=== PATIENT | female | born 1980 | race Caucasian/White ===

== ENCOUNTER 2018-07-28 23:30 | Emergency (ER) | payer OTHER ==
[2018-07-28 23:37] VITALS: BP 137/83; TEMP 97.9; BMI 33.6
[2018-07-29] MEDS ORDERED: TYLENOL PO STA (00:07)
--- NOTE | 2018-07-29 00:07 | ED.PDOC ---
General ED Provider: Dr. RASHEL BRYANT-ER Chief Complaint: Wrist Pain/Injury Stated Complaint: i was lifting something at work and my wrist popped Time Seen by Physician: 23:35 Mode of Arrival: Walk-In Information Source: Patient Exam Limitations: No limitations Primary Care Provider: KHADAR ROLAND Nursing and Triage Documentation Reviewed and Agree: Yes Does patient meet sepsis criteria?: No System Inflammatory Response Syndrome: Not Applicable Sepsis Protocol: For patient's 13 years and over: Temp is 96.8 and below OR 101 and greater Pulse >90 BPM Resp >20/minute Acutely Altered Mental Status Are patient's symptoms suggestive of a new infection, such as: -Pneumonia -Skin, Soft Tissue -Endocarditis -UTI -Bone, Joint Infection -Implantable Device -Acute Abdominal Infection -Wound Infection -Meningitis -Blood Stream Catheter Infection -Unknown Musculoskeletal Complaint Exam - Hand/Wrist Complaint/Exam Location of Pain: Reports: Left, Wrist Mechanism of Injury: Reports: Trauma Onset/Duration: tonight Symptoms Are: Still present Onset of Pain: Reports: Immediate, Post accident Initial Severity: Mild Current Severity: Mild Location: Reports: Discrete Character: Reports: Dull, Aching Aggravating: Reports: Movement Associated Signs and Symptoms: Reports: Tingling Tenderness: Present: Radius, Ulna Compartment Syndrome Risk Factors: Present: Pain Differential Diagnoses: Contusion, Sprain, Strain Review of Systems - Review Of Systems Constitutional: Reports: No symptoms Eyes: Reports: No symptoms Ears, Nose, Mouth, Throat: Reports: No symptoms Respiratory: Reports: No symptoms Cardiac: Reports: No symptoms GI: Reports: No symptoms : Reports: No symptoms Musculoskeletal: Reports: Muscle pain Skin: Reports: No symptoms Neurological: Reports: No symptoms Endocrine: Reports: No symptoms Hematologic/Lymphatic: Reports: No symptoms All Other Systems: Reviewed and Negative Past Medical History - Past Medical History Previously Healthy: Yes Endocrine: Reports: Unknown Cardiovascular: Reports: Unknown Respiratory: Reports: Unknown Hematological: Reports: Unknown Gastrointestinal: Reports: Unknown Genitourinary: Reports: Unknown Neuro/Psych: Reports: Unknown Musculoskeletal: Reports: Unknown Cancer: Reports: Unknown Last Menstrual Period: PT HAS HAD A HYSTERECTOMY - Surgical History General Surgical History: Reports: Unknown - Family History Family History: Reports: Unknown - Social History Smoking Status: Current every day smoker, Light tobacco smoker Hx Substance Use: No Alcohol Screening: None - Immunizations Tetanus Shot up to Date: Yes Physical Exam - Physical Exam Appearance: Well-appearing, No pain distress, Well-nourished Eyes: CYNTHIA, EOMI, Conjunctiva clear ENT: Ears normal, Nose normal, Oropharynx normal Neck: Supple Respiratory: Airway patent, Breath sounds clear, Breath sounds equal, Respirations nonlabored Cardiovascular: RRR, Pulses normal, No rub, No murmur GI/: Soft, Nontender, No masses, Bowel sounds normal, No Organomegaly Musculoskeletal: Limited ROM Skin: Warm, Dry, Normal color Neurological: Sensation intact, Motor intact, Reflexes intact, Cranial nerves intact, Alert, Oriented Psychiatric: Affect appropriate Interpretation - Radiology Interpretation Radiology Interpretation By: ED Physician Radiology Results: Negative Procedures - Splinting Location: left wrist Pre-Made Type: Velcro Splint: Wrist Pre-Proc Neuro Vasc Exam: Normal Post-Proc Neuro Vasc Exam: Normal Critical Care Note - Critical Care Note Total Time (mins): 0 Course - Course Orders, Labs, Meds: Orders Category Date Time Status Splint [ED SPLINT APPLICATION] .ONCE EMERGENCY 07/29/18 00:06 Active Acetaminophen [Tylenol] MEDS 07/29/18 00:07 Discontinued 650 mg PO ONCE STA HAND, LEFT 3 VIEWS Stat RADS 07/28/18 23:47 Taken WRIST, LEFT 3 VIEWS Stat RADS 07/28/18 23:47 Taken Medications Discontinued Medications Generic Name Dose Route Start Last Admin Trade Name Chapitoq PRN Reason Stop Dose Admin Acetaminophen 650 mg 07/29/18 00:07 Tylenol PO 07/29/18 00:08 ONCE STA Vital Signs: Temp Pulse Resp BP Pulse Ox 07/28/18 23:31 97.9 F 73 16 137/83 99 Departure - Departure Time of Disposition: 00:09 Disposition: HOME SELF-CARE Discharge Problem: Injury of wrist Instructions: Wrist Injury (ED) Condition: Good Pt referred to PMD for follow-up: Yes IPMP verified?: No Additional Instructions: stay in splint--ice---tylenol for pain---recheck in a few days if not better with pcp Allergies/Adverse Reactions: Allergies hydromorphone [From Dilaudid] Adverse Reaction (Verified 07/28/18 23:39) Swelling/RASH Sulfa (Sulfonamide Antibiotics) Adverse Reaction (Verified 07/28/18 23:39) Vomiting GAUZE Adverse Reaction (Uncoded 07/28/18 23:39) Hives/RASH Home Medications: Ambulatory Orders Albuterol Sulfate [Albuterol Sulfate Hfa] 8.5 gm IH Q4-6H PRN 07/28/18 Bupropion HCl [Wellbutrin Sr] 200 mg PO BID 07/28/18 Cholecalciferol (Vitamin D3) [Vitamin D3] 1,000 unit PO WEEKLY 07/28/18 Clonazepam [Klonopin] 1 mg PO QID PRN 07/28/18 Cyanocobalamin (Vitamin B-12) [Vitamin B-12] 1,000 mcg IM MONTHLY 07/28/18 Cyclobenzaprine HCl [Flexeril] 10 mg PO TID 07/28/18 Levothyroxine Sodium 150 mcg PO DAILY 07/28/18 Ropinirole HCl [Requip] 0.5 mg PO BEDTIME 07/28/18 Disposition Discussed With: Patient, Family
--- NOTE | 2018-07-29 00:47 | DI ---
EXAM: Left hand three views HISTORY: Injury COMPARISON: None. FINDINGS: . A portion of the distal aspects of the second through fifth digits is excluded from vie w. There is no acute fracture or dislocation. The surrounding soft tissues are unremarkable IMPRESSION: No acute findings
--- NOTE | 2018-07-29 00:48 | DI ---
EXAM: Left hand three views HISTORY: Injury COMPARISON: None. FINDINGS: There are no acute fracture or dislocation. The surrounding soft tissues are unremarkable . IMPRESSION: No acute findings
== END 2018-07-29 00:16 | disposition home or self-care (01) ==
LOC: ED 23:30
DX: S69.92XA Unspecified injury of left wrist, hand and finger(s), initial encounter (principal); X50.9XXA Other and unspecified overexertion or strenuous movements or postures, initial encounter; F17.210 Nicotine dependence, cigarettes, uncomplicated
CPT/HCPCS: 99282

== ENCOUNTER 2018-08-27 12:52 | Emergency (ER) | payer OTHER ==
[2018-08-27 12:59] VITALS: BP 129/85; TEMP 99.1; BMI 31.0
--- NOTE | 2018-08-27 14:57 | ED.PDOC ---
General ED Provider: Dr. BHARTI RENE Chief Complaint: Abdominal Pain Stated Complaint: 37 Y OLD FEMALE,DENIES GESTATION REPORTS NO bm X 2 WEEKS.dIFFUSE abdominal discomfort on palpation in all quadrantas but no surhgical symptoms,rebound ro localizing, Time Seen by Physician: 12:55 Mode of Arrival: Walk-In Information Source: Patient Exam Limitations: No limitations Primary Care Provider: KHADAR ROLAND Nursing and Triage Documentation Reviewed and Agree: Yes Does patient meet sepsis criteria?: No System Inflammatory Response Syndrome: Not Applicable Sepsis Protocol: For patient's 13 years and over: Temp is 96.8 and below OR 101 and greater Pulse >90 BPM Resp >20/minute Acutely Altered Mental Status Are patient's symptoms suggestive of a new infection, such as: -Pneumonia -Skin, Soft Tissue -Endocarditis -UTI -Bone, Joint Infection -Implantable Device -Acute Abdominal Infection -Wound Infection -Meningitis -Blood Stream Catheter Infection -Unknown GI Complaint Exam - Abdominal Pain Complaint/Exam Duration: 2 weeks no BM Symptoms Are: Still present Timing: Constant Initial Severity: Mild Current Severity: None Location of Pain: Suprapubic Character: Reports: Dull Aggravating: Reports: None Alleviating: Reports: None Associated Signs and Symptoms: Reports: Nausea AAA Risk Factors: Reports: None Cardiac Risk Factors: Reports: None Ectopic Risk Factors: Reports: None Ovarian Torsion Risk Factors: Reports: None Surgical Obstruction Risk Factors: Reports: None Related Surgical History: Reports: None Abdominal Findings: Present: None Differential Diagnoses: Bowel Obstruction, Constipation Quality Indicator For Non-Traumatic Chest Pain/Syncope: EKG Performed Review of Systems - Review Of Systems Constitutional: Reports: No symptoms Eyes: Reports: No symptoms Ears, Nose, Mouth, Throat: Reports: No symptoms Respiratory: Reports: No symptoms Cardiac: Reports: No symptoms GI: Reports: No symptoms, Constipated : Reports: No symptoms Musculoskeletal: Reports: No symptoms Skin: Reports: No symptoms Neurological: Reports: No symptoms Endocrine: Reports: No symptoms Hematologic/Lymphatic: Reports: No symptoms All Other Systems: Reviewed and Negative Past Medical History - Past Medical History Previously Healthy: Yes Endocrine: Reports: Unknown Cardiovascular: Reports: Unknown Respiratory: Reports: Unknown Hematological: Reports: Unknown Gastrointestinal: Reports: Unknown Genitourinary: Reports: Unknown Neuro/Psych: Reports: Unknown Musculoskeletal: Reports: Unknown Cancer: Reports: Unknown Last Menstrual Period: none - Surgical History General Surgical History: Reports: Unknown - Family History Family History: Reports: Unknown - Social History Smoking Status: Current every day smoker Hx Substance Use: No Alcohol Screening: None - Immunizations Tetanus Shot up to Date: Yes Physical Exam - Physical Exam Appearance: Well-appearing Ill-appearing: None Pain Distress: Mild Eyes: CYNTHIA, EOMI, Conjunctiva clear ENT: Ears normal, Nose normal, Oropharynx normal Neck: Supple Respiratory: Airway patent, Breath sounds clear, Breath sounds equal Cardiovascular: RRR, Pulses normal, No rub, No murmur GI/: Soft, Nontender, No masses Musculoskeletal: Normal strength, ROM intact, No edema, No calf tenderness Skin: Warm, Dry, Normal color Neurological: Sensation intact, Motor intact, Reflexes intact, Cranial nerves intact, Alert, Oriented Psychiatric: Affect appropriate Critical Care Note - Critical Care Note Total Time (mins): 0 Course - Course Hematology/Chemistry: 08/27/18 15:10 08/27/18 15:10 Orders, Labs, Meds: Lab Review 08/27/18 08/27/18 08/27/18 14:50 15:10 15:10 WBC 8.90 RBC 4.45 Hgb 14.0 Hct 41.5 MCV 93.3 MCH 31.5 H MCHC 33.7 RDW Coeff of Capri 14.5 Plt Count 314 Immature Gran % (Auto) 0.2 Neut % (Auto) 59.8 Lymph % (Auto) 23.0 Coal % (Auto) 10.9 H Eos % (Auto) 5.1 Baso % (Auto) 1.0 Immature Gran # (Auto) 0.0 Neut # (Auto) 5.3 Lymph # (Auto) 2.1 Coal # (Auto) 1.0 Eos # (Auto) 0.5 Baso # (Auto) 0.1 Sodium 139.8 Potassium 3.38 L Chloride 104.7 Carbon Dioxide 26.8 Anion Gap 11.68 BUN 7.0 Creatinine 0.75 Estimated GFR (MDRD) 86.00 BUN/Creatinine Ratio 9.33 Glucose 92.1 Calcium 8.97 Total Bilirubin 0.55 AST 20.5 ALT 20.0 Alkaline Phosphatase 62.8 Total Protein 7.06 Albumin 4.05 Globulin 3.01 Albumin/Globulin Ratio 1.34 Urine Color Yellow Urine Clarity Clear Urine pH 7.5 Ur Specific Palmer 1.010 Urine Protein Negative Urine Glucose (UA) Negative Urine Ketones Negative Urine Blood Negative Urine Nitrite Negative Urine Bilirubin Negative Urine Urobilinogen 0.2 Ur Leukocyte Esterase Trace Urine Microscopic WBC 2-5 Ur Squamous Epith Cells 5-10 Orders Category Date Time Status IV [ED IV/MEDIPORT/POWERPORT] .ONCE EMERGENCY 08/27/18 15:03 Active CBC W/ AUTO DIFF Stat LAB 08/27/18 15:10 Completed COMPREHENSIVE METABOLIC PANEL Stat LAB 08/27/18 15:10 Completed URINALYSIS C & S IF INDICATED Stat LAB 08/27/18 14:50 Completed 0.9 % Sodium Chloride [Saline Flush] MEDS 08/27/18 15:03 Active 1 syr IVF PRN PRN Bisacodyl [Dulcolax] MEDS 08/27/18 16:00 Stat 5 mg PO ONCE STA Sodium Chloride 0.9% [Sodium Chloride] 1,000 ml MEDS 08/27/18 15:[address] ABDOMEN/PELVIS WO CONTRAST Stat RADS 08/27/18 15:01 Completed Medications Generic Name Dose Route Start Last Admin Trade Name Freq PRN Reason Stop Dose Admin Sodium Chloride 1,000 mls @ 1,000 mls/hr 08/27/18 15:04 08/27/18 15:17 Sodium Chloride IV 08/27/18 16:03 1,000 mls/hr BOLUS STA Administration Sodium Chloride 1 syr 08/27/18 15:03 08/27/18 15:17 Saline Flush IVF 1 syr PRN PRN Administration To flush IV Discontinued Medications Generic Name Dose Route Start Last Admin Trade Name Freq PRN Reason Stop Dose Admin Bisacodyl 5 mg 08/27/18 16:00 Dulcolax PO 08/27/18 16:01 ONCE STA Vital Signs: Temp Pulse Resp BP Pulse Ox 08/27/18 12:53 99.1 F 92 H 16 129/85 96 Departure - Departure Time of Disposition: 16:03 Disposition: HOME SELF-CARE Discharge Problem: Constipation Instructions: Constipation (ED) Condition: Good Pt referred to PMD for follow-up: Yes IPMP verified?: No Allergies/Adverse Reactions: Allergies hydromorphone [From Dilaudid] Adverse Reaction (Verified 08/27/18 14:44) Swelling/RASH Sulfa (Sulfonamide Antibiotics) Adverse Reaction (Verified 08/27/18 14:44) Vomiting GAUZE Adverse Reaction (Uncoded 07/28/18 23:39) Hives/RASH Home Medications: Ambulatory Orders Albuterol Sulfate [Albuterol Sulfate Hfa] 8.5 gm IH Q4-6H PRN 07/28/18 Bupropion HCl [Wellbutrin Sr] 200 mg PO BID 07/28/18 Cholecalciferol (Vitamin D3) [Vitamin D3] 1,000 unit PO WEEKLY 07/28/18 Clonazepam [Klonopin] 1 mg PO QID PRN 07/28/18 Cyanocobalamin (Vitamin B-12) [Vitamin B-12] 1,000 mcg IM MONTHLY 07/28/18 Cyclobenzaprine HCl [Flexeril] 10 mg PO TID 07/28/18 Levothyroxine Sodium 150 mcg PO DAILY 07/28/18 Ropinirole HCl [Requip] 0.5 mg PO BEDTIME 07/28/18 Acetaminophen with Codeine [Tylenol #3 Tab] 1 tab PO Q6H PRN 08/27/18 Ibuprofen 800 mg PO Q8HR PRN 08/27/18 Disposition Discussed With: Patient, Family
[2018-08-27] MEDS ORDERED: SODIUM CHLORIDE 1,000 ML IV STA (15:04)
--- NOTE | 2018-08-27 15:47 | CT ---
EXAM: CT of the abdomen pelvis without contrast History: Constipation and abdominal pain, right lower quadrant abdominal pain and back pain. Technique: Multiplanar CT images through the abdomen pelvis were obtained without the administration of IV contrast Findings: Dependent atelectasis seen within the lower lungs. No acute osseous abnormalities. Possible cholelithiasis and/or gallbladder sludge. No focal liver or splenic lesions. No peripancre atic inflammation. Evaluation. Pancreatic parenchyma is limited due to the lack of contrast adminis tration. Adrenal glands are unremarkable. No renal stones and no hydronephrosis. No bowel obstruct ion. The appendix is normal. No bladder wall thickening. Status post hysterectomy. No new inflamm ation. No free air and no ascites. No abdominal aortic aneurysm. No pathologically enlarged lymph nodes. Mild to moderate colonic stool Impression: 1. No acute intra-abdominal or pelvic process. 2. Possible cholelithiasis. Recommend further evaluation with right upper quadrant abdominal ultras ound
[2018-08-27] MEDS ORDERED: DULCOLAX PO STA (16:00)
== END 2018-08-27 16:45 | disposition home or self-care (01) ==
LOC: ED 12:52
DX: K59.00 Constipation, unspecified (principal); R10.84 Generalized abdominal pain; F17.210 Nicotine dependence, cigarettes, uncomplicated; Z79.899 Other long term (current) drug therapy
CPT/HCPCS: 36415; 80053; 81001; 85025; 96360; 99283

== ENCOUNTER 2018-09-10 22:08 | Emergency (ER) ==
[2018-09-10 22:15] VITALS: BP 115/83; TEMP 98.9; BMI 33.0
[2018-09-10] MEDS ORDERED: LIDOCAINE HCL 4% 5 ML AMP INJ STA (22:48)
[2018-09-10] MEDS ORDERED: ULTRAM PO STA (23:27)
[2018-09-10] MEDS ORDERED: CLEOCIN PO STA (23:27)
--- NOTE | 2018-09-10 23:30 | ED.PDOC ---
General ED Provider: Dr. YUMIKO SAHNI Chief Complaint: Non-specific Complaint Stated Complaint: Patient comes to the ER After Noticing a boil on the right upper buttocks for few days. Pain has been getting worse. squeezed it and had some purulent drainage. Time Seen by Physician: 22:30 Mode of Arrival: Walk-In Information Source: Patient, Family Primary Care Provider: KHADAR ROLAND Nursing and Triage Documentation Reviewed and Agree: Yes Does patient meet sepsis criteria?: No System Inflammatory Response Syndrome: Not Applicable Sepsis Protocol: For patient's 13 years and over: Temp is 96.8 and below OR 101 and greater Pulse >90 BPM Resp >20/minute Acutely Altered Mental Status Are patient's symptoms suggestive of a new infection, such as: -Pneumonia -Skin, Soft Tissue -Endocarditis -UTI -Bone, Joint Infection -Implantable Device -Acute Abdominal Infection -Wound Infection -Meningitis -Blood Stream Catheter Infection -Unknown Review of Systems - Review Of Systems Constitutional: Reports: No symptoms Skin: Reports: Lesions (right buttock ) Neurological: Reports: Anxiety All Other Systems: Reviewed and Negative Past Medical History - Past Medical History Previously Healthy: Yes Endocrine: Reports: Hypothyroid Cardiovascular: Reports: None Respiratory: Reports: Asthma Hematological: Reports: None Gastrointestinal: Reports: None Genitourinary: Reports: None Neuro/Psych: Reports: Anxiety, PTSD Musculoskeletal: Reports: Arthritis Cancer: Reports: None Last Menstrual Period: 2017 hyst - Surgical History General Surgical History: Reports: Hysterectomy (2017), Tubal ligation (2008), Other (uterine Ablation 2013) - Family History Family History: Reports: Unknown - Social History Smoking Status: Current every day smoker, Light tobacco smoker Hx Substance Use: No Alcohol Screening: None - Immunizations Tetanus Shot up to Date: Yes Physical Exam - Physical Exam Appearance: Ill-appearing, Obese Ill-appearing: Mild Pain Distress: Moderate Skin: Warm, Dry Neurological: Alert, Oriented Psychiatric: Anxious Procedures - Incision and Drainage Site: Right upper buttock Instrument Used: 11 Blade I & D Procedure: Yes: Betadine Prep Lidocaine Used: Yes (4 %) Type of Drainage: Present: Pus, Blood Irrigated: Yes Progress: Tolerated well with No complications. Had no pain during the procedure Critical Care Note - Critical Care Note Total Time (mins): 0 Course - Course Orders, Labs, Meds: Orders Category Date Time Status CULTURE WOUND [WOUND CULTURE] Stat LAB 09/10/18 23:35 Received Clindamycin HCl [Cleocin] MEDS 09/10/18 23:27 Discontinued 300 mg PO ONCE STA Lidocaine HCl/Pf [Lidocaine HCl 4% 5 ml Amp] MEDS 09/10/18 22:48 Discontinued 5 ml INJ ONCE STA Tramadol HCl [Ultram] MEDS 09/10/18 23:27 Discontinued 50 mg PO ONCE STA Medications Discontinued Medications Generic Name Dose Route Start Last Admin Trade Name Chapitoq PRN Reason Stop Dose Admin Clindamycin HCl 300 mg 09/10/18 23:27 09/10/18 23:38 Cleocin PO 09/10/18 23:28 300 mg ONCE STA Administration Lidocaine HCl 5 ml 09/10/18 22:48 09/10/18 22:58 Lidocaine Hcl 4% 5 Ml Amp INJ 09/10/18 22:49 5 ml ONCE STA Administration Tramadol HCl 50 mg 09/10/18 23:27 09/10/18 23:37 Ultram PO 09/10/18 23:28 50 mg ONCE STA Administration Vital Signs: Temp Pulse Resp BP Pulse Ox 09/10/18 22:09 98.9 F 96 H 18 115/83 97 Departure - Departure Time of Disposition: 23:45 Disposition: HOME SELF-CARE Discharge Problem: Abscess Instructions: Abscess (ED) Condition: Fair Pt referred to PMD for follow-up: Yes IPMP verified?: No Additional Instructions: Follow up with the Clinic or ER to have packing changed. Take antibiotics as prescribed Keep area clean and Dry, Change Dressing twice a day. Prescriptions: Clindamycin HCl 300 mg PO TID #30 capsule Tramadol HCl [Ultram] 50 mg PO Q6H PRN #10 tablet PRN Reason: Severe Pain Allergies/Adverse Reactions: Allergies hydromorphone [From Dilaudid] Adverse Reaction (Verified 09/10/18 22:15) Swelling/RASH Sulfa (Sulfonamide Antibiotics) Adverse Reaction (Verified 09/10/18 22:15) Vomiting GAUZE Adverse Reaction (Uncoded 09/10/18 22:15) Hives/RASH Home Medications: Ambulatory Orders Albuterol Sulfate [Albuterol Sulfate Hfa] 8.5 gm IH Q4-6H PRN 07/28/18 Bupropion HCl [Wellbutrin Sr] 200 mg PO BID 07/28/18 Cholecalciferol (Vitamin D3) [Vitamin D3] 1,000 unit PO WEEKLY 07/28/18 Clonazepam [Klonopin] 1 mg PO QID PRN 07/28/18 Cyanocobalamin (Vitamin B-12) [Vitamin B-12] 1,000 mcg IM MONTHLY 07/28/18 Cyclobenzaprine HCl [Flexeril] 10 mg PO TID 07/28/18 Levothyroxine Sodium 150 mcg PO DAILY 07/28/18 Ropinirole HCl [Requip] 0.5 mg PO BEDTIME 07/28/18 Acetaminophen with Codeine [Tylenol #3 Tab] 1 tab PO Q6H PRN 08/27/18 Ibuprofen 800 mg PO Q8HR PRN 08/27/18 Clindamycin HCl 300 mg PO TID #30 capsule 09/10/18 Tramadol HCl [Ultram] 50 mg PO Q6H PRN #10 tablet 09/10/18 Disposition Discussed With: Patient, Family
== END 2018-09-10 23:50 | disposition home or self-care (01) ==
LOC: ED 22:08
DX: L02.31 Cutaneous abscess of buttock (principal); F17.210 Nicotine dependence, cigarettes, uncomplicated
CPT/HCPCS: 87070; 87186; 96372; 99282